=== PATIENT | male | born 1960 | race Caucasian/White ===

== ENCOUNTER 2018-07-23 14:27 | Emergency (ER) | payer OTHER ==
[~2018-07-23] VITALS: Ht 170.2 cm; Wt 77.1 kg
[2018-07-23 15:20] LABS: BASOPHILS # (AUTO) 0.1 /CMM (0.0-0.2); BASOPHILS % (AUTO) 1.1 % (0.0-2.0); EOSINOPHILS % (AUTO) 0.8 % (0.0-6.0); HEMATOCRIT 48 % (39-51); HEMOGLOBIN 16.4 g/dL (13.5-17.5); LYMPHOCYTES # (AUTO) 4.1 /CMM (0.8-4.8); LYMPHOCYTES % (AUTO) 43.1 % (20.0-44.0); MEAN CORPUSCULAR HGB CONC 34 g/dl (31.0-36.0); MEAN CORPUSCULAR VOLUME 91 fL (80-96); MONOCYTES # (AUTO) 0.5 /CMM (0.1-1.30); MONOCYTES % (AUTO) 5.5 % (2.0-12.0); NEUTROPHILS # (AUTO) 4.7 /CMM (1.8-8.9); NEUTROPHILS % (AUTO) 49.5 % (43.0-81.0); PLATELET COUNT (AUTO) 259 /CMM (150-450); RED BLOOD CELL COUNT(AUTO) 5.25 MIL/uL (4.5-6.0); WHITE BLOOD COUNT (AUTO) 9.5 K/uL (4.3-11.0)
[2018-07-23 15:32] LABS: CARBON DIOXIDE 29 mmol/L (21-32); CHLORIDE 107 mmol/L (98-107); CREATININE 0.8 mg/dL (0.6-1.3); GLUCOSE 86 mg/dL (74-106); POTASSIUM 3.9 mmol/L (3.5-5.1); SODIUM SERUM 143 mmol/L (136-145); UREA NITROGEN, BLOOD 5 mg/dL (7-18)
[2018-07-23 15:50] LABS: ALANINE AMINOTRANSFERASE 46 U/L (12-78); ALBUMIN 4.1 g/dL (3.4-5.0); ALCOHOL, BLOOD 249 mg/dL (0-0); ALKALINE PHOSPHATASE 127 U/L (46-116); ASPARTATE AMINOTRANSFERASE 40 U/L (15-37); BILIRUBIN,DIRECT 0.1 mg/dL (0.0-0.2); BILIRUBIN,TOTAL 0.4 mg/dL (0.2-1.0); SALICYLATE 5.4 mg/dL (2.8-20.0); TOTAL PROTEIN, SERUM 8.6 g/dL (6.4-8.2)
[2018-07-23 15:50] LABS: APPEARANCE,URINE Clear (CLEAR); BILIRUBIN,URINE Negative (NEGATIVE); BLOOD, URINE Trace-lysed Ery/uL (NEGATIVE); COLOR,URINE Yellow (YELLOW); KETONES,URINE Negative (NEGATIVE); LEUKOCYTE ESTERASE ,URINE Negative (NEGATIVE); NITRITE, URINE Negative (NEGATIVE); PH,URINE 5.5 (5.0-8.0); PROTEIN,URINE Negative (NEGATIVE); UGLUCOSE Negative (NEGATIVE); UROBILINOGEN,URINE 0.2 EU/dL (0.2)
[2018-07-23 15:53] LABS: ACETAMINOPHEN < 2 ug/ml (10-30)
[2018-07-23 16:06] LABS: BACTERIA,URINE Few /HPF (None Seen); SQUAMOUS EPITHELIAL CELL,UR Few /HPF (None Seen); WBC,URINE 0-2 /HPF (0-3)
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
--- NOTE | 2018-07-23 23:30 | NUR ---
SOPHIA RODRIGUEZ AT BEDSIDE FOR EVAL
--- NOTE | 2018-07-24 02:10 | NUR ---
Patient is resting comfortably in bed with eyes closed. Easily aroused. VSS.
[2018-07-24] MEDS ORDERED: ONDANSETRON 4 MG TAB.RAPDIS ONE (02:21)
[2018-07-24] MEDS ORDERED: ONDANSETRON 4 MG TAB.RAPDIS SL ONE (02:30)
--- NOTE | 2018-07-24 05:41 | NUR ---
PT ACCEPTED TO [facility] BY DR WEBER. # FOR REPORT [phone]
--- NOTE | 2018-07-24 06:13 | NUR ---
[facility] CALLED FOR TRANSPORT. ETA [phone]. TRIP# [id number]
--- NOTE | 2018-07-24 07:22 | NUR ---
CALLED [facility] FOR REPORT. TOLD TO CALL BACK AT [phone].
[2018-07-24 07:43] VITALS: BP 109/65
--- NOTE | 2018-07-24 07:43 | NUR ---
[facility] AT BEDSIDE FOR TRANSPORT TO [facility].
== END 2018-07-24 07:43 | disposition home or self-care (01) ==
LOC: ER 14:39
DX: R45.851 Suicidal ideations (principal); F32.9 Major depressive disorder, single episode, unspecified
CPT/HCPCS: 36415; 80048; 80076; 80305; 80307 ×2; 80329; 81001; 85025; 99284; A4606; A6402; G0480; Q0162; 81000-TC

== ENCOUNTER 2019-07-03 16:07 | Emergency (ER) | payer OTHER ==
[~2019-07-03] VITALS: Ht 172.7 cm; Wt 77.1 kg
[2019-07-03] MEDS ORDERED: QUET100T PO (16:19)
[2019-07-03] MEDS ORDERED: FLUO20CA36 PO (16:19)
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
--- NOTE | 2019-07-03 16:28 | NUR ---
SECURITY CALLED FOR WANDING.
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
[2019-07-03] MEDS ORDERED: ACETAMINOPHEN ES 500 MG TABLET ONE (16:46)
[2019-07-03 16:47] LABS: APPEARANCE,URINE Clear (CLEAR); BILIRUBIN,URINE Negative (NEGATIVE); BLOOD, URINE Negative Ery/uL (NEGATIVE); COLOR,URINE Yellow (YELLOW); KETONES,URINE Negative (NEGATIVE); LEUKOCYTE ESTERASE ,URINE Negative (NEGATIVE); NITRITE, URINE Negative (NEGATIVE); PROTEIN,URINE Negative (NEGATIVE); UGLUCOSE Negative (NEGATIVE); UROBILINOGEN,URINE 0.2 EU/dL (0.2)
--- NOTE | 2019-07-03 16:54 | NUR ---
Patient is resting comfortably in bed. Easily aroused. VSS. Awaiting Pt to provide urine sample.
[2019-07-03 16:55] LABS: BASOPHILS # (AUTO) 0.1 /CMM (0.0-0.2); BASOPHILS % (AUTO) 0.9 % (0.0-2.0); EOSINOPHILS % (AUTO) 1.9 % (0.0-6.0); HEMATOCRIT 42 % (39-51); HEMOGLOBIN 13.9 g/dL (13.5-17.5); LYMPHOCYTES # (AUTO) 3.3 /CMM (0.8-4.8); MEAN CORPUSCULAR HGB CONC 33 g/dl (31.0-36.0); MEAN CORPUSCULAR VOLUME 91 fL (80-96); MONOCYTES # (AUTO) 0.6 /CMM (0.1-1.30); MONOCYTES % (AUTO) 6.3 % (2.0-12.0); NEUTROPHILS # (AUTO) 5.5 /CMM (1.8-8.9); NEUTROPHILS % (AUTO) 56.9 % (43.0-81.0); PLATELET COUNT (AUTO) 190 /CMM (150-450); RED BLOOD CELL COUNT(AUTO) 4.63 MIL/uL (4.5-6.0); WHITE BLOOD COUNT (AUTO) 9.7 K/uL (4.3-11.0)
[2019-07-03] MEDS ORDERED: ACETAMINOPHEN 325 MG TABLET PO ONE (17:00)
[2019-07-03 17:04] LABS: CALCIUM, SERUM 9.1 mg/dL (8.5-10.1); CARBON DIOXIDE 27 mmol/L (21-32); CHLORIDE 107 mmol/L (98-107); GLUCOSE 74 mg/dL (74-106); POTASSIUM 3.7 mmol/L (3.5-5.1); SODIUM SERUM 146 mmol/L (136-145); UREA NITROGEN, BLOOD 14 mg/dL (7-18)
[2019-07-03 17:10] LABS: ACETAMINOPHEN < 2 ug/ml (10-30); ALANINE AMINOTRANSFERASE 30 U/L (12-78); ALBUMIN 3.8 g/dL (3.4-5.0); ALCOHOL, BLOOD 182 mg/dL (0-0); ALKALINE PHOSPHATASE 142 U/L (46-116); ASPARTATE AMINOTRANSFERASE 36 U/L (15-37); BILIRUBIN,DIRECT 0.1 mg/dL (0.0-0.2); BILIRUBIN,TOTAL 0.4 mg/dL (0.2-1.0); SALICYLATE 2.7 mg/dL (2.8-20.0); TOTAL PROTEIN, SERUM 7.9 g/dL (6.4-8.2)
--- NOTE | 2019-07-03 20:32 | NUR ---
PT RESTING. SITTER AT BEDSIDE.
--- NOTE | 2019-07-03 23:10 | NUR ---
PT RESTING COMFORTABLY. VSS.
--- NOTE | 2019-07-04 00:06 | NUR ---
Patient is resting comfortably in bed. Easily aroused. VSS.
--- NOTE | 2019-07-04 00:15 | NUR ---
CLINICALS FAXED TO [facility] FOR VOLUNTARY ADMISSION.
--- NOTE | 2019-07-04 02:11 | NUR ---
Pt resting. VSS.
--- NOTE | 2019-07-04 02:36 | NUR ---
PT RESTING QUIETLY, NO ACUTE DISTRESS NOTED, RESP EVEN AND UNLABORED. CALL [facility] REACH. 1:1 SITTER REMAINS AT BEDSIDE. WILL CONTINUE TO MONITOR PT CLOSELY.
--- NOTE | 2019-07-04 03:25 | NUR ---
PT ACCEPTED AT [facility] ACCEPTING MD UNDERWOOD PHONE # FOR REPORT EXT [phone] ROOM NUMBER WILL BE PROVIDED DURING NURSE TO NURSE REPORT.
--- NOTE | 2019-07-04 03:59 | NUR ---
SPOKE WITH [facility] OF CALL THE CAR FOR TRANSPORT TO [facility]. WILL CALL BACK FOR ETA.
--- NOTE | 2019-07-04 04:10 | NUR ---
CALL THE CAR CALLED TRANSPORT [facility], ETA [phone], CONFIRMATION #[id number].
--- NOTE | 2019-07-04 05:20 | NUR ---
PT DOES NOT WANT TO GO TO [facility]. PT VERBALIZES THAT HE FEELS BETTER AND IS NO LONGER SUICIDAL. AWARE. PT IS CLEARED FOR DC
[2019-07-04 05:46] VITALS: BP 102/65
== END 2019-07-04 05:50 | disposition home or self-care (01) ==
LOC: ER 16:08
DX: S01.01XA Laceration without foreign body of scalp, initial encounter (principal); R74.8 Abnormal levels of other serum enzymes; M79.642 Pain in left hand; M79.641 Pain in right hand; F32.9 Major depressive disorder, single episode, unspecified; F10.10 Alcohol abuse, uncomplicated; Z88.0 Allergy status to penicillin; Z59.0 Homelessness; Z79.899 Other long term (current) drug therapy; Y04.0XXA Assault by unarmed brawl or fight, initial encounter; Y93.89 Activity, other specified; Y92.89 Other specified places as the place of occurrence of the external cause; Y99.8 Other external cause status; Y90.9 Presence of alcohol in blood, level not specified
CPT/HCPCS: 36415 ×2; 80048; 80076; 80305; 80307 ×3; 80329; 81001; 85025; 99285; G0480; 81000-TC

== ENCOUNTER 2024-04-09 13:35 | Inpatient (IN) | payer MEDICARE, OTHER ==
[~2024-04-09] VITALS: Ht 170.2 cm; Wt 67.1 kg
[~2024-04-09 13:35] MED LIST: FLUO20CA36 PO; QUET100T PO
[2024-04-09] MEDS: IV NS 0.9% 1,000 ML BAG IV ONE (14:08)
[2024-04-09 14:16] LABS: BASOPHILS % (AUTO) 0.4 % (0.0-2.0); EOSINOPHILS # (AUTO) 0.4 K/uL (0.0-0.7); EOSINOPHILS % (AUTO) 4.5 % (0.0-6.0); HEMATOCRIT 40 % (39-51); HEMOGLOBIN 12.9 g/dL (13.5-17.5); LYMPHOCYTES # (AUTO) 2.3 K/uL (0.8-4.8); LYMPHOCYTES % (AUTO) 24.8 % (20.0-44.0); MEAN CORPUSCULAR HEMOGLOBIN 29 PG (26.0-33.0); MEAN CORPUSCULAR HGB CONC 33 g/dl (31.0-36.0); MEAN CORPUSCULAR VOLUME 90 fL (80-96); MONOCYTES # (AUTO) 0.7 K/uL (0.1-1.30); MONOCYTES % (AUTO) 7.4 % (2.0-12.0); NEUTROPHILS # (AUTO) 5.9 K/uL (1.8-8.9); NEUTROPHILS % (AUTO) 62.9 % (43.0-81.0); PLATELET COUNT (AUTO) 242 K/uL (150-450); RED BLOOD CELL COUNT(AUTO) 4.39 MIL/uL (4.5-6.0); RED CELL DISTRIBUTION WIDTH 14.8 % (11.5-15.0); WHITE BLOOD COUNT (AUTO) 9.4 K/uL (4.3-11.0)
[2024-04-09 14:34] LABS: INR 1.08 (0.91-1.10); PARTIAL THROMBOPLASTIN TIME 27.7 SEC (24.3-34.3); PROTHROMBIN TIME 11.4 SECS (9.2-11.1)
[2024-04-09 14:41] LABS: CALCIUM, SERUM 8.9 mg/dL (8.5-10.1); CARBON DIOXIDE 26 mmol/L (21-32); CHLORIDE 107 mmol/L (98-107); CREATININE 1.1 mg/dL (0.6-1.3); GLUCOSE 74 mg/dL (74-106); POTASSIUM 4.2 mmol/L (3.5-5.1); SODIUM SERUM 142 mmol/L (136-145); UREA NITROGEN, BLOOD 19 mg/dL (7-18)
[2024-04-09 14:44] LABS: LACTIC ACID 1.7 mmol/L (0.4-2.0)
[2024-04-09 14:51] LABS: ALANINE AMINOTRANSFERASE 19 U/L (12-78); ALBUMIN 3.4 g/dL (3.4-5.0); ALKALINE PHOSPHATASE 120 U/L (46-116); ASPARTATE AMINOTRANSFERASE 23 U/L (15-37); BILIRUBIN,DIRECT 0.1 mg/dL (0.0-0.2); BILIRUBIN,TOTAL 0.4 mg/dL (0.2-1.0); TOTAL PROTEIN, SERUM 8.3 g/dL (6.4-8.2)
[2024-04-09] MEDS ORDERED: MECLIZINE HCL 25 MG TABLET ONE (15:19)
[2024-04-09] MEDS: MECLIZINE HCL 12.5 MG TABLET PO ONE (15:20)
[2024-04-09] MEDS ORDERED: AZITHROMYCIN 250 MG TABLET ONE (16:59)
[2024-04-09] MEDS: AZITHROMYCIN 250 MG TABLET PO ONE (17:01)
[2024-04-09 17:45] VITALS: BP 142/80; TEMP 97.7; O2SAT 98
[2024-04-09 17:51] LABS: APPEARANCE,URINE CLEAR (CLEAR); BILIRUBIN,URINE NEGATIVE (NEGATIVE); BLOOD, URINE NEGATIVE Ery/uL (NEGATIVE); COLOR,URINE YELLOW (YELLOW); KETONES,URINE NEGATIVE (NEGATIVE); LEUKOCYTE ESTERASE ,URINE NEGATIVE (NEGATIVE); NITRITE, URINE NEGATIVE (NEGATIVE); PROTEIN,URINE NEGATIVE (NEGATIVE); UGLUCOSE NEGATIVE (NEGATIVE); UROBILINOGEN,URINE 0.2 EU/dL (0.2)
[2024-04-09] MEDS: IV NS 0.9% 1,000 ML IV PRN (17:52)
[2024-04-09] MEDS ORDERED: FLUO10TA PO (17:54)
[2024-04-09] MEDS ORDERED: FOLI0.8C PO (17:54)
[2024-04-09] MEDS ORDERED: NALT50TA PO (17:54)
[2024-04-09] MEDS ORDERED: VARE1TAB PO (17:54)
[2024-04-09] MEDS ORDERED: ASPI-1169 PO (17:54)
[2024-04-09] MEDS ORDERED: FAMO20TA8 PO (17:54)
[2024-04-09] MEDS ORDERED: ATOR80TA PO (17:54)
[2024-04-09] MEDS ORDERED: CLOP75TA15 PO (17:54)
[2024-04-09] MEDS ORDERED: GABA600T12 PO (17:54)
[2024-04-09] MEDS ORDERED: MAGNESIUM HYDROXIDE 30 ML UDC PO PRN (18:00)
[2024-04-09] MEDS ORDERED: ONDANSETRON HCL/PF 4 MG/2 ML VIAL IVP PRN (18:00)
[2024-04-09] MEDS ORDERED: MAG HYDROX/AL HYDROX/SIMETH 30 ML UDC PO PRN (18:00)
[2024-04-09] MEDS ORDERED: Z GUARD REMEDY 4 OZ OINT TP PRN (18:00)
[2024-04-09 19:55] LABS: THYROID STIMULATING HORMONE 1.4 uIU/mL (0.358-3.74)
[2024-04-09 20:00] VITALS: BP 140/80; TEMP 97.7; O2SAT 98
[2024-04-09 21:11] LABS: BASOPHILS # (AUTO) 0.1 K/uL (0.0-0.2); BASOPHILS % (AUTO) 0.8 % (0.0-2.0); EOSINOPHILS # (AUTO) 0.4 K/uL (0.0-0.7); EOSINOPHILS % (AUTO) 4.7 % (0.0-6.0); HEMATOCRIT 37 % (39-51); HEMOGLOBIN 12.3 g/dL (13.5-17.5); LYMPHOCYTES # (AUTO) 2.4 K/uL (0.8-4.8); LYMPHOCYTES % (AUTO) 31.1 % (20.0-44.0); MEAN CORPUSCULAR HEMOGLOBIN 29 PG (26.0-33.0); MEAN CORPUSCULAR HGB CONC 33 g/dl (31.0-36.0); MEAN CORPUSCULAR VOLUME 89 fL (80-96); MONOCYTES # (AUTO) 0.6 K/uL (0.1-1.30); MONOCYTES % (AUTO) 8.1 % (2.0-12.0); NEUTROPHILS # (AUTO) 4.2 K/uL (1.8-8.9); NEUTROPHILS % (AUTO) 55.3 % (43.0-81.0); PLATELET COUNT (AUTO) 192 K/uL (150-450); RED BLOOD CELL COUNT(AUTO) 4.19 MIL/uL (4.5-6.0); RED CELL DISTRIBUTION WIDTH 14.5 % (11.5-15.0); WHITE BLOOD COUNT (AUTO) 7.6 K/uL (4.3-11.0)
[2024-04-09] MEDS: ENOXAPARIN SODIUM 40 MG/0.4 ML DISP.SYRIN SQ SCH (21:38)
[2024-04-09] MEDS: ZOLPIDEM TARTRATE 5 MG TABLET PO PRN (21:38)
[2024-04-10] VITALS (7 sets, daily range): BP systolic 90–141; BP diastolic 56–87; TEMP 97.9–98.3; O2SAT 95–98
[2024-04-10 06:30] LABS: BASOPHILS # (AUTO) 0.1 K/uL (0.0-0.2); BASOPHILS % (AUTO) 0.9 % (0.0-2.0); EOSINOPHILS # (AUTO) 0.4 K/uL (0.0-0.7); EOSINOPHILS % (AUTO) 4.5 % (0.0-6.0); HEMATOCRIT 39 % (39-51); HEMOGLOBIN 12.8 g/dL (13.5-17.5); LYMPHOCYTES # (AUTO) 2.4 K/uL (0.8-4.8); LYMPHOCYTES % (AUTO) 27.5 % (20.0-44.0); MEAN CORPUSCULAR HEMOGLOBIN 30 PG (26.0-33.0); MEAN CORPUSCULAR HGB CONC 33 g/dl (31.0-36.0); MEAN CORPUSCULAR VOLUME 91 fL (80-96); MONOCYTES # (AUTO) 0.6 K/uL (0.1-1.30); MONOCYTES % (AUTO) 6.6 % (2.0-12.0); NEUTROPHILS # (AUTO) 5.3 K/uL (1.8-8.9); NEUTROPHILS % (AUTO) 60.5 % (43.0-81.0); PLATELET COUNT (AUTO) 197 K/uL (150-450); RED BLOOD CELL COUNT(AUTO) 4.29 MIL/uL (4.5-6.0); RED CELL DISTRIBUTION WIDTH 14.8 % (11.5-15.0); WHITE BLOOD COUNT (AUTO) 8.7 K/uL (4.3-11.0)
[2024-04-10 06:41] LABS: CALCIUM, SERUM 8.9 mg/dL (8.5-10.1); CREATININE 0.8 mg/dL (0.6-1.3); MAGNESIUM 1.9 mg/dL (1.8-2.4); PHOSPHORUS 3.6 mg/dL (2.5-4.9); POTASSIUM 4.1 mmol/L (3.5-5.1)
[2024-04-10] MEDS: PANTOPRAZOLE 40 MG TABLET.DR PO SCH (08:24)
[2024-04-10] MEDS: ACETAMINOPHEN 325 MG TABLET PO PRN (11:43)
[2024-04-11 04:00] VITALS: BP 130/86; TEMP 98.2; O2SAT 98
[2024-04-11 06:20] VITALS: BP_SYST 125; BP_SYST 143; BP_DIAS 84; BP_DIAS 89
[2024-04-11 08:00] VITALS: BP 137/83; TEMP 97.9
[2024-04-11 12:00] VITALS: BP 137/83; TEMP 97.9; O2SAT 98
== END 2024-04-11 16:20 | DRG 312 ==
LOC: ER 13:55 → TELE1 16:47 → MEDSG1 04-10 11:59
DX: R55 Syncope and collapse (principal); Z59.00 Homelessness unspecified; F31.9 Bipolar disorder, unspecified; E78.5 Hyperlipidemia, unspecified; F32.A Depression, unspecified; Z88.0 Allergy status to penicillin; Z79.899 Other long term (current) drug therapy; W19.XXXA Unspecified fall, initial encounter; Y92.9 Unspecified place or not applicable; S09.90XA Unspecified injury of head, initial encounter; I25.10 Atherosclerotic heart disease of native coronary artery without angina pectoris
CPT/HCPCS: 36415; 70450-TC; 71045-TC; 80048-TC; 80061-TC; 80076-TC; 83605-TC; 83735-TC; 84100-TC; 84443-TC; 84484-TC; 85025-TC; 85730-TC; 87040-TC; 87086-TC; 93307-TC; 97112-TC; 97116-TC; 97530-TC; A4223; G0378; J1650; J7030; J8597